=== PATIENT | female | born 1955 | race Hispanic/Latino ===

== ENCOUNTER 2024-08-10 17:04 | Emergency (ER) | payer MEDICARE ==
[2024-08-10] VITALS (11 sets, daily range): BP systolic 134–156; BP diastolic 73–90
[~2024-08-10] VITALS: Ht 152.4 cm; Wt 54.0 kg
[2024-08-10] MEDS ORDERED: KETOROLAC TROMETHAMINE 30 MG/ML SDV IV ONE (17:20)
[2024-08-10] MEDS ORDERED: DEXAMETHASONE SOD. PHOSPHATE 10 MG/ML VIAL IV ONE (17:20)
[2024-08-10 17:55] LABS: BASO% 0.3 % (0-3); EOS% 0.4 % (0-8); HEMATOCRIT 35.3 % (37.0-47.0); HEMOGLOBIN 11.5 g/dl (12.0-16.0); IMMATURE GRANULOCYTES 0.2 % (0.0-5.0); MEAN CELL VOLUME 92.7 fL CALC (80.0-100.0); MEAN CORPUSCULAR HGB 30.2 pG CALC (26.0-32.0); MEAN CORPUSCULAR HGB CONC 32.6 g/dL CAL (32.0-36.0); MONO% 5.3 % (2-13); NEUT# 7.27 thou/uL (2.00-7.15); NEUT% 78.8 % (42-76); RED BLOOD COUNT 3.81 mill/uL (4.20-5.60); RED CELL DISTRI WIDTH 12.6 % (11.5-15.5)
[2024-08-10 18:15] LABS: ALBUMIN 3.7 g/dL (3.2-5.0); ALKALINE PHOSPHATASE 97 u/l (38-126); ANION GAP 13 (6-22 (CALC)); BILIRUBIN, TOTAL 0.9 mg/dL (0.02-1.3); BUN 16 mg/dL (8-23); BUN/CREATININE RATIO 46 (12-20 (CALC)); CARBON DIOXIDE 25 mmol/l (22-30); CHLORIDE 103 mmol/l (95-108); CREATININE 0.3 mg/dL (0.5-1.0); ESTIMATED GFR 115 ML/MIN (>=90 (CALC)); SGOT/AST 48 u/l (9-36); SODIUM 136 mmol/l (137-146)
[2024-08-10 18:17] LABS: POTASSIUM 5.2 mmol/l (3.5-5.1)
[2024-08-10] MEDS ORDERED: oxyCODONE 5MG/ ACETAMINOPHEN 325MG TAB PO ONE (19:35)
[2024-08-10] MEDS ORDERED: PREDNISONE50 MG PO (19:43)
== END 2024-08-10 20:28 | disposition home or self-care (01) ==
LOC: ED 17:04
PROVIDERS: Family Medicine
DX: J10.1 Influenza due to other identified influenza virus with other respiratory manifestations (principal); M15.9 Polyosteoarthritis, unspecified; I10 Essential (primary) hypertension; Z20.822 Contact with and (suspected) exposure to COVID-19